=== PATIENT | female | born 1945 | race Caucasian/White ===

== ENCOUNTER 2016-09-08 03:12 | Inpatient (IN) | payer MEDICARE, MEDICAID ==
[~2016-09-08] VITALS: Ht 172.7 cm; Wt 75.5 kg
[~2016-09-08 03:12] MED LIST: AMLO10TA2 PO; AMLO10TA4 PO; AMLO5TAB4 PO; AMOX1TAB64 PO; ASPI-621 PO; BACL-19 PO; CALC400T5 PO; CARV25TA12 PO; CLON1TAB23 PO; DOCU-30 PO; DULO30CA2 PO; ENOX40SY4 SQ; EZET10TA3 PO; FOLI-17 PO; GABA300C10 PO; HYDR-3138 PO; HYDR-3342; IBUP800T PO; IPRA4AER INH; LEVO500T33 PO; LEVO50TA5 PO; LISI-420 PO; LORA0.5T PO; MAGN400T26 PO; METO25TA35 PO; MIRT30TA3 PO; MULT-6 PO; ONDA4TAB7 PO; OXYB10TA PO; OXYC15TA PO; OXYC1TAB8 PO; PANT40TA3 PO; POLY17PO5 PO; QUIN40TA PO; THIA100T10 PO; TRAZ300T6 PO; Trazadone
[2016-09-08] MEDS ORDERED: ALBUTEROL/IPRATROPIUM 2.5MG/0.5MG, 3 ML ONE ×2 (03:17→04:44)
[2016-09-08] MEDS ORDERED: methylPREDNISolone SOD SUCC 125 MG/2 ML IVP ONE (03:30)
[2016-09-08] MEDS ORDERED: ALBUTEROL SULFATE 2.5 MG/3 ML NPPB ONE (03:30)
[2016-09-08] MEDS ORDERED: SODIUM CHLORIDE 0.9% 1,000ML IVBOLUS ONE (03:30)
[2016-09-08] MEDS ORDERED: AMLO10TA2 PO (03:40)
[2016-09-08] MEDS ORDERED: methylPREDNISolone SOD SUCC 125 MG/2 ML ONE (03:53)
[2016-09-08] MEDS ORDERED: AZITHROMYCIN 500 MG in SODIUM CHLORIDE 0.9% 250 ML IV ONE (04:00)
[2016-09-08] MEDS ORDERED: ACETAMINOPHEN 325 MG TABLET PO ONE (04:00)
[2016-09-08] MEDS ORDERED: CEFTRIAXONE PMX 1GM/50ML 50 ML IVPB ONE (04:00)
[2016-09-08] MEDS ORDERED: ACETAMINOPHEN 325 MG TABLET ONE (04:02)
[2016-09-08] MEDS ORDERED: CEFTRIAXONE PMX 1GM/50ML 50 ML ONE (04:02)
[2016-09-08 04:22] LABS: BLOOD UREA NITROGEN 15 mg/dL (7-18)
[2016-09-08 04:29] LABS: IS PT STATUS REG ER OR PRE ER? YES
[2016-09-08] MEDS ORDERED: IBUPROFEN 200 MG TABLET PO PRN (05:00)
[2016-09-08] MEDS ORDERED: ACETAMINOPHEN 325 MG TABLET PO PRN (05:00)
[2016-09-08] MEDS ORDERED: MORPHINE SULFATE 4 MG/ML, 1ML IVPush PRN (05:00)
[2016-09-08] MEDS ORDERED: GUAIFENESIN/DM 200-20MG, 10ML UDC PO PRN (05:00)
[2016-09-08] MEDS ORDERED: FUROSEMIDE 40 MG/4 ML IV ONE (05:00)
[2016-09-08] MEDS ORDERED: DOCUSATE 100 MG CAPSULE PO PRN (05:00)
[2016-09-08] MEDS ORDERED: POLYETHYLENE GLYCOL 17 GM PACKET PO PRN (05:00)
[2016-09-08] MEDS ORDERED: ONDANSETRON 2MG/ML, 2ML IVPush PRN ×2 (05:00)
[2016-09-08] MEDS ORDERED: BISACODYL 10 MG SUPP PR PRN (05:00)
[2016-09-08 05:22] VITALS: BP 132/75
[2016-09-08] MEDS ORDERED: ALBUTEROL/IPRATROPIUM 2.5MG/0.5MG, 3 ML NPPB PRN (05:30)
[2016-09-08] MEDS: OXYcodone IR 5MG TABLET PO SCH ×4 (06:00→21:14)
[2016-09-08] MEDS: NICOTINE 21 MG/24 HR PATCH.TD24 TD SCH (06:04)
[2016-09-08] MEDS: ENOXAPARIN 40 MG/0.4 ML SQ SCH (06:04)
[2016-09-08 07:24] VITALS: BP 126/81
[2016-09-08] MEDS: POTASSIUM CHLORIDE 20 MEQ TAB.ER.PRT PO SCH (08:00)
[2016-09-08] MEDS ORDERED: FUROSEMIDE 40 MG/4 ML IV SCH (09:00)
[2016-09-08] MEDS: SODIUM CHLORIDE FLUSH 3ML SYRINGE IVF SCH ×2 (09:00→21:15)
[2016-09-08] MEDS ORDERED: OXYBUTYNIN CHLORIDE 5 MG TABLET PO SCH (09:00)
[2016-09-08] MEDS: methylPREDNISolone SOD SUCC 125 MG/2 ML IVPush SCH ×3 (09:43→22:24)
[2016-09-08] MEDS: GABAPENTIN 300 MG CAPSULE PO SCH ×3 (09:51→21:14)
[2016-09-08] MEDS: AMLODIPINE 5 MG TABLET PO SCH (09:51)
[2016-09-08] MEDS: DULOXETINE 30 MG CAPSULE.DR PO SCH (09:51)
[2016-09-08] MEDS: LEVOTHYROXINE 50 MCG TABLET PO SCH (09:51)
[2016-09-08 13:05] VITALS: BP 135/85
[2016-09-08] MEDS: FLUTICASONE/VILANTEROL 200-25MCG/INH INH SCH (14:33)
[2016-09-08 15:53] LABS: IS PT STATUS REG ER OR PRE ER? NO
[2016-09-08] MEDS: CEFTRIAXONE PMX 1GM/50ML 50 ML IV SCH (16:17)
[2016-09-08 18:45] VITALS: BP 122/70
[2016-09-08] MEDS: ALBUTEROL/IPRATROPIUM 2.5MG/0.5MG, 3 ML NPPB SCH (21:30)
[2016-09-09 00:45] VITALS: BP 126/77
[2016-09-09] MEDS: OXYcodone IR 5MG TABLET PO PRN ×4 (03:20→20:29)
[2016-09-09] MEDS: CEFTRIAXONE PMX 1GM/50ML 50 ML IV SCH ×2 (04:27→16:01)
[2016-09-09] MEDS: methylPREDNISolone SOD SUCC 125 MG/2 ML IVPush SCH ×4 (04:28→22:13)
[2016-09-09] MEDS: NICOTINE 21 MG/24 HR PATCH.TD24 TD SCH (05:28)
[2016-09-09] MEDS: ENOXAPARIN 40 MG/0.4 ML SQ SCH (05:28)
[2016-09-09] MEDS: AZITHROMYCIN 500 MG in SODIUM CHLORIDE 0.9% 250 ML IV SCH (05:28)
[2016-09-09] MEDS: ALBUTEROL/IPRATROPIUM 2.5MG/0.5MG, 3 ML NPPB SCH ×4 (07:10→19:30)
[2016-09-09] MEDS: DULOXETINE 30 MG CAPSULE.DR PO SCH (08:42)
[2016-09-09] MEDS: GABAPENTIN 300 MG CAPSULE PO SCH ×3 (08:42→20:29)
[2016-09-09] MEDS: LEVOTHYROXINE 50 MCG TABLET PO SCH (08:42)
[2016-09-09] MEDS: OXYBUTYNIN CHLORIDE 5 MG TABLET PO SCH ×3 (08:42→20:33)
[2016-09-09] MEDS: AMLODIPINE 5 MG TABLET PO SCH (08:42)
[2016-09-09] MEDS: POTASSIUM CHLORIDE 20 MEQ TAB.ER.PRT PO SCH (08:43)
[2016-09-09] MEDS: SODIUM CHLORIDE FLUSH 3ML SYRINGE IVF SCH ×2 (08:43→20:33)
[2016-09-09] MEDS: FLUTICASONE/VILANTEROL 200-25MCG/INH INH SCH (08:43)
[2016-09-09] MEDS: FUROSEMIDE 40 MG/4 ML IV SCH (08:43)
[2016-09-09 13:31] VITALS: BP 125/74
[2016-09-09 20:00] VITALS: BP 129/71
[2016-09-09] MEDS: LORazepam 0.5MG TABLET PO PRN (20:30)
[2016-09-10 02:31] VITALS: BP 132/84
[2016-09-10] MEDS: OXYcodone IR 5MG TABLET PO PRN ×5 (04:35→23:31)
[2016-09-10] MEDS: CEFTRIAXONE PMX 1GM/50ML 50 ML IV SCH ×2 (04:35→16:42)
[2016-09-10] MEDS: methylPREDNISolone SOD SUCC 125 MG/2 ML IVPush SCH ×4 (04:42→22:35)
[2016-09-10] MEDS: ENOXAPARIN 40 MG/0.4 ML SQ SCH (04:43)
[2016-09-10] MEDS: NICOTINE 21 MG/24 HR PATCH.TD24 TD SCH (04:43)
[2016-09-10] MEDS: AZITHROMYCIN 500 MG in SODIUM CHLORIDE 0.9% 250 ML IV SCH (05:22)
[2016-09-10] MEDS: ALBUTEROL/IPRATROPIUM 2.5MG/0.5MG, 3 ML NPPB SCH ×4 (07:00→20:02)
[2016-09-10 08:00] VITALS: BP 142/84
[2016-09-10] MEDS: OXYBUTYNIN CHLORIDE 5 MG TABLET PO SCH ×3 (08:14→21:41)
[2016-09-10] MEDS: AMLODIPINE 5 MG TABLET PO SCH (08:14)
[2016-09-10] MEDS: LEVOTHYROXINE 50 MCG TABLET PO SCH (08:14)
[2016-09-10] MEDS: POTASSIUM CHLORIDE 20 MEQ TAB.ER.PRT PO SCH (08:14)
[2016-09-10] MEDS: GABAPENTIN 300 MG CAPSULE PO SCH ×3 (08:14→21:41)
[2016-09-10] MEDS: FLUTICASONE/VILANTEROL 200-25MCG/INH INH SCH (08:14)
[2016-09-10] MEDS: FUROSEMIDE 40 MG/4 ML IV SCH (08:15)
[2016-09-10] MEDS: DULOXETINE 30 MG CAPSULE.DR PO SCH (08:15)
[2016-09-10] MEDS: SODIUM CHLORIDE FLUSH 3ML SYRINGE IVF SCH ×2 (08:16→21:41)
[2016-09-10 15:52] VITALS: BP 131/73
[2016-09-10 18:26] VITALS: BP 124/73
[2016-09-10] MEDS: LORazepam 0.5MG TABLET PO PRN (21:41)
[2016-09-11 02:00] VITALS: BP 155/88
[2016-09-11] MEDS: CEFTRIAXONE PMX 1GM/50ML 50 ML IV SCH (04:21)
[2016-09-11] MEDS: methylPREDNISolone SOD SUCC 125 MG/2 ML IVPush SCH ×2 (04:21→08:45)
[2016-09-11] MEDS: AZITHROMYCIN 500 MG in SODIUM CHLORIDE 0.9% 250 ML IV SCH (05:11)
[2016-09-11] MEDS: ENOXAPARIN 40 MG/0.4 ML SQ SCH (05:11)
[2016-09-11] MEDS: NICOTINE 21 MG/24 HR PATCH.TD24 TD SCH (05:11)
[2016-09-11 05:38] LABS: BLOOD UREA NITROGEN 29 mg/dL (7-18)
[2016-09-11] MEDS: ALBUTEROL/IPRATROPIUM 2.5MG/0.5MG, 3 ML NPPB SCH (06:57)
[2016-09-11 08:38] VITALS: BP 172/74
[2016-09-11] MEDS: OXYBUTYNIN CHLORIDE 5 MG TABLET PO SCH (08:45)
[2016-09-11] MEDS: OXYcodone IR 5MG TABLET PO PRN ×2 (08:45→13:06)
[2016-09-11] MEDS: GABAPENTIN 300 MG CAPSULE PO SCH (08:45)
[2016-09-11] MEDS: LEVOTHYROXINE 50 MCG TABLET PO SCH (08:45)
[2016-09-11] MEDS: FLUTICASONE/VILANTEROL 200-25MCG/INH INH SCH (08:45)
[2016-09-11] MEDS: AMLODIPINE 5 MG TABLET PO SCH (08:45)
[2016-09-11] MEDS: POTASSIUM CHLORIDE 20 MEQ TAB.ER.PRT PO SCH (08:46)
[2016-09-11] MEDS: SODIUM CHLORIDE FLUSH 3ML SYRINGE IVF SCH (08:46)
[2016-09-11] MEDS: FUROSEMIDE 40 MG/4 ML IV SCH (08:46)
[2016-09-11] MEDS: DULOXETINE 30 MG CAPSULE.DR PO SCH (08:46)
[2016-09-11] MEDS ORDERED: methylPREDNISolone SOD SUCC 125 MG/2 ML IVPush SCH (11:00)
[2016-09-11] MEDS ORDERED: LOSARTAN 25MG TABLET PO SCH (12:30)
[2016-09-11] MEDS ORDERED: AMLODIPINE 5 MG TABLET PO SCH (12:30)
[2016-09-11] MEDS ORDERED: AMLO5TAB2 PO (12:34)
[2016-09-11] MEDS ORDERED: FURO-93 PO (12:34)
[2016-09-11] MEDS ORDERED: AZIT500T77 PO (12:34)
[2016-09-11] MEDS ORDERED: IBUP200T5 PO (12:34)
[2016-09-11] MEDS ORDERED: POTA20TA14 PO (12:34)
[2016-09-11] MEDS ORDERED: FLUT1BLS INH (12:34)
[2016-09-11] MEDS ORDERED: PRED5TAB PO (12:34)
[2016-09-11] MEDS ORDERED: CEFD300C37 PO (12:34)
[2016-09-11] MEDS ORDERED: IPRA3AMP NPPB (12:34)
[2016-09-11] MEDS ORDERED: LOSA25TA2 PO (12:38)
[2016-09-11 13:04] VITALS: BP 161/75
== END 2016-09-11 15:35 | disposition home or self-care (01) | DRG 871 ==
LOC: ED 03:38 → EDIP 04:33 → SUATTDRO 04:41 → 4WST 05:11 → DCLOUNGE 09-11 15:25
DX: A41.9 Sepsis, unspecified organism (principal); J15.9 Unspecified bacterial pneumonia; J96.21 Acute and chronic respiratory failure with hypoxia; I50.33 Acute on chronic diastolic (congestive) heart failure; J44.1 Chronic obstructive pulmonary disease with (acute) exacerbation; E44.1 Mild protein-calorie malnutrition; E87.1 Hypo-osmolality and hyponatremia; J44.0 Chronic obstructive pulmonary disease with (acute) lower respiratory infection; J98.11 Atelectasis; E03.9 Hypothyroidism, unspecified; F17.210 Nicotine dependence, cigarettes, uncomplicated; F25.9 Schizoaffective disorder, unspecified; G89.29 Other chronic pain; I11.0 Hypertensive heart disease with heart failure; K70.9 Alcoholic liver disease, unspecified; N32.81 Overactive bladder; Z79.891 Long term (current) use of opiate analgesic; Z86.73 Personal history of transient ischemic attack (TIA), and cerebral infarction without residual deficits; Z99.81 Dependence on supplemental oxygen
CPT/HCPCS: 36415; 36600; 71010; 80048; 82040; 82800; 83605; 83735; 83880; 84145; 84484; 85025; 87040; 93005; 93306; 94640; 96374; J0456; J0696; J1650; J1940; J7620; J2930; J7030; J7050

== ENCOUNTER 2017-12-15 17:05 | Inpatient (IN) | payer MEDICARE, MEDICAID ==
[~2017-12-15] VITALS: Ht 165.1 cm; Wt 70.8 kg
[~2017-12-15 17:05] MED LIST changes: +AMLO5TAB2 PO; +AZIT500T5 PO; +CEFD300C37 PO; +DICL25TA PO; +DOCU-131 PO; +DOCU-180 PO; -DOCU-30 PO; +EZET10TA18 PO; -EZET10TA3 PO; +FLUT1BLS INH; +FURO-93 PO; +GUAI100L36 PO; -HYDR-3138 PO; +HYDR-3237 PO; +IBUP-1223 PO; +IBUP-1484 PO; +IBUP-1623 PO; -IBUP800T PO; +IPRA3AMP30 NPPB; -LEVO500T33 PO; +LEVO500T47 PO; +LOSA25TA2 PO; +METR500T PO; +MIRA25TA PO; +NICO-487 TD; +OMEP-110 PO; +ONDA4TAB12 PO; +OXYC-302 PO; +POTA20TA14 PO; +PRED5TAB PO
[2017-12-15] MEDS ORDERED: SODIUM CHLORIDE FLUSH 10ML SYR IVF ONE (17:30)
[2017-12-15 17:43] LABS: BASOPHILS # (AUTO) 0.05 x10^3/uL (0-0.1); BASOPHILS % (AUTO) 1 % (0-1); EOSINOPHILS # (AUTO) 0.13 x10^3/uL (0-0.4); EOSINOPHILS % (AUTO) 2 % (1-7); LYMPHOCYTES # (AUTO) 1.43 x10^3/uL (1-3.4); LYMPHOCYTES % (AUTO) 24 % (22-44); MD NO; MEAN CORPUSCULAR HEMOGLOBIN 31.8 pg (27.0-34.8); MEAN CORPUSCULAR HGB CONC 34.1 g/dL (32.4-35.8); MEAN CORPUSCULAR VOLUME 93.2 fL (80-100); MEAN PLATELET VOLUME 9.4 fL (7.4-10.4); MONOCYTES % (AUTO) 5 % (2-9); NEUTROPHILS # (AUTO) 4.13 x10^3/uL (1.8-6.8); NEUTROPHILS % (AUTO) 68 % (42-75); PLATELET COUNT 230 x10^3/uL (130-400); RED BLOOD COUNT 4.81 x10^6/uL (3.82-5.3); RED CELL DISTRIBUTION WIDTH 12.8 % (9.6-15.2)
[2017-12-15 17:49] LABS: ALANINE AMINOTRANSFERASE 18 U/L (12-78); ALBUMIN 3.6 g/dL (3.4-5.0); ANION GAP 2 mmol/L (5-15); CALCIUM 8.7 mg/dL (8.5-10.1); CHLORIDE 110 mmol/L (98-107); CREATININE 0.72 mg/dL (0.55-1.02)
[2017-12-15 17:51] LABS: ALKALINE PHOSPHATASE 111 U/L (45-117); BILIRUBIN,TOTAL 0.6 mg/dL (0.2-1.0); TOTAL PROTEIN 7.4 g/dL (6.4-8.2)
[2017-12-15] MEDS ORDERED: ASPIRIN 325 MG TABLET EC PO ONE (18:30)
[2017-12-15] MEDS ORDERED: ASPIRIN 325 MG TABLET EC ONE (18:44)
[2017-12-15] MEDS ORDERED: ACETAMINOPHEN 325 MG TABLET PO PRN (20:00)
[2017-12-15] MEDS ORDERED: LORazepam 0.5MG TABLET PO SCH (20:00)
[2017-12-15] MEDS ORDERED: DOCUSATE 100 MG CAPSULE PO PRN (20:30)
[2017-12-15 20:37] VITALS: BP 130/79
[2017-12-15] MEDS: ATORVASTATIN 40 MG TABLET PO SCH (22:54)
[2017-12-15] MEDS: GABAPENTIN 300 MG CAPSULE PO SCH (22:54)
[2017-12-15] MEDS: SODIUM CHLORIDE 0.9% 1,000 ML IV SCH (22:54)
[2017-12-15] MEDS: ONDANSETRON 4 MG TABLET PO SCH (22:54)
[2017-12-15] MEDS: OMEPRAZOLE 20 MG CAPSULE.DR PO SCH (22:54)
[2017-12-16] MEDS ORDERED: OMNIPAQUE 350 MG/ML, 100ML BOTTLE ONE (01:23)
[2017-12-16 04:00] VITALS: BP 124/76
[2017-12-16] MEDS: ONDANSETRON 4 MG TABLET PO SCH ×4 (06:17→21:14)
[2017-12-16 06:27] LABS: CHOL/HDL RATIO 4.2; LDL/HDL RATIO 2.8 (0.5-3.0)
[2017-12-16 06:59] VITALS: BP 151/86
[2017-12-16] MEDS: AMLODIPINE 5 MG TABLET PO SCH (08:04)
[2017-12-16] MEDS: LEVOTHYROXINE 50 MCG TABLET PO SCH (08:04)
[2017-12-16] MEDS: OMEPRAZOLE 20 MG CAPSULE.DR PO SCH ×2 (08:04→16:16)
[2017-12-16] MEDS: CALCIUM CARBONATE 500 MG TAB.CHEW PO SCH (08:04)
[2017-12-16] MEDS: GABAPENTIN 300 MG CAPSULE PO SCH ×3 (08:05→21:14)
[2017-12-16] MEDS: DULOXETINE 30 MG CAPSULE.DR PO SCH (08:05)
[2017-12-16] MEDS: ASPIRIN 81 MG TABLET CHEW PO/NG SCH (08:05)
[2017-12-16] MEDS: LOSARTAN 25MG TABLET PO SCH (08:05)
[2017-12-16] MEDS: Mirabegron** (Myrbetriq**) 25 MG) HOMEMEDPO SCH (09:00)
[2017-12-16] MEDS ORDERED: GADOBUTROL 7.5 MMOL/7.5 ML PFS ONE (11:13)
[2017-12-16] MEDS: FLUTICASONE/VILANTEROL 200-25MCG/INH INH SCH (12:18)
[2017-12-16] MEDS: SODIUM CHLORIDE 0.9% 1,000 ML IV SCH ×2 (12:19→16:21)
[2017-12-16 15:46] VITALS: BP 142/84
[2017-12-16 19:14] VITALS: BP 135/79
[2017-12-16] MEDS: ATORVASTATIN 40 MG TABLET PO SCH (21:14)
[2017-12-17] MEDS: SODIUM CHLORIDE 0.9% 1,000 ML IV SCH ×2 (02:22→12:17)
[2017-12-17 03:27] VITALS: BP 131/76
[2017-12-17] MEDS: ONDANSETRON 4 MG TABLET PO SCH ×4 (05:56→21:04)
[2017-12-17 07:19] VITALS: BP 167/80
[2017-12-17] MEDS: FLUTICASONE/VILANTEROL 200-25MCG/INH INH SCH (08:59)
[2017-12-17] MEDS: CALCIUM CARBONATE 500 MG TAB.CHEW PO SCH (09:00)
[2017-12-17] MEDS: LOSARTAN 25MG TABLET PO SCH (09:00)
[2017-12-17] MEDS: LEVOTHYROXINE 50 MCG TABLET PO SCH (09:00)
[2017-12-17] MEDS: AMLODIPINE 5 MG TABLET PO SCH (09:00)
[2017-12-17] MEDS: DULOXETINE 30 MG CAPSULE.DR PO SCH (09:01)
[2017-12-17] MEDS: OMEPRAZOLE 20 MG CAPSULE.DR PO SCH ×2 (09:01→16:33)
[2017-12-17] MEDS: ASPIRIN 81 MG TABLET CHEW PO/NG SCH (09:01)
[2017-12-17] MEDS: GABAPENTIN 300 MG CAPSULE PO SCH ×3 (09:01→21:04)
[2017-12-17] MEDS: Mirabegron** (Myrbetriq**) 25 MG) HOMEMEDPO SCH (09:02)
[2017-12-17 09:11] VITALS: BP 130/79
[2017-12-17 11:00] LABS: MICROSCOPIC INDICATED
[2017-12-17 11:01] LABS: CULTURE INDICATED? YES
[2017-12-17 11:14] LABS: AMPHETAMINE SCREEN, URINE Negative (Negative); BARBITURATE SCREEN, URINE Negative (Negative); BENZODIAZEPINE SCREEN, URINE Negative (Negative); CANNABINOID SCREEN, URINE Positive (Negative); COCAINE SCREEN, URINE Negative (Negative); METHADONE SCREEN, URINE Negative (Negative); OPIATE SCREEN, URINE Negative (Negative)
[2017-12-17 13:37] VITALS: BP 108/72
[2017-12-17] MEDS ORDERED: CEFTRIAXONE PMX 1GM/50ML 50 ML IV SCH (16:30)
[2017-12-17 16:35] VITALS: BP 110/70
[2017-12-17] MEDS: CEFTRIAXONE 1,000 MG in SODIUM CHLORIDE 0.9% 50 ML IV SCH (17:45)
[2017-12-17 19:24] VITALS: BP 130/79
[2017-12-17] MEDS: ATORVASTATIN 40 MG TABLET PO SCH (21:04)
[2017-12-18] MEDS: SODIUM CHLORIDE 0.9% 1,000 ML IV SCH (01:05)
[2017-12-18 01:28] VITALS: BP 148/72
[2017-12-18] MEDS: ONDANSETRON 4 MG TABLET PO SCH ×4 (06:29→21:35)
[2017-12-18 07:15] VITALS: BP 148/81
[2017-12-18] MEDS: Mirabegron** (Myrbetriq**) 25 MG) HOMEMEDPO SCH (09:00)
[2017-12-18] MEDS: CALCIUM CARBONATE 500 MG TAB.CHEW PO SCH (09:00)
[2017-12-18] MEDS: DULOXETINE 30 MG CAPSULE.DR PO SCH (09:49)
[2017-12-18] MEDS: FLUCONAZOLE 200 MG TABLET PO SCH (09:50)
[2017-12-18] MEDS: OMEPRAZOLE 20 MG CAPSULE.DR PO SCH ×2 (09:51→17:08)
[2017-12-18] MEDS: LEVOTHYROXINE 50 MCG TABLET PO SCH (09:51)
[2017-12-18] MEDS: LOSARTAN 50MG TABLET PO SCH (09:52)
[2017-12-18] MEDS: AMLODIPINE 5 MG TABLET PO SCH (09:52)
[2017-12-18] MEDS: GABAPENTIN 300 MG CAPSULE PO SCH ×3 (09:53→21:35)
[2017-12-18] MEDS: ASPIRIN 81 MG TABLET CHEW PO/NG SCH (09:54)
[2017-12-18] MEDS: FLUTICASONE/VILANTEROL 200-25MCG/INH INH SCH (09:54)
[2017-12-18 12:46] VITALS: BP 102/66
[2017-12-18] MEDS: CEFTRIAXONE 1,000 MG in SODIUM CHLORIDE 0.9% 50 ML IV SCH (17:08)
[2017-12-18 19:52] VITALS: BP 140/87
[2017-12-18] MEDS: ATORVASTATIN 40 MG TABLET PO SCH (21:35)
[2017-12-19 02:21] VITALS: BP 152/72
[2017-12-19] MEDS: ONDANSETRON 4 MG TABLET PO SCH ×3 (04:51→11:00)
[2017-12-19 07:34] VITALS: BP 151/79
[2017-12-19] MEDS: Mirabegron** (Myrbetriq**) 25 MG) HOMEMEDPO SCH (09:00)
[2017-12-19] MEDS: CALCIUM CARBONATE 500 MG TAB.CHEW PO SCH (09:00)
[2017-12-19] MEDS: ASPIRIN 81 MG TABLET CHEW PO/NG SCH (09:49)
[2017-12-19] MEDS: FLUCONAZOLE 200 MG TABLET PO SCH (09:50)
[2017-12-19] MEDS: AMLODIPINE 5 MG TABLET PO SCH (09:50)
[2017-12-19] MEDS: LOSARTAN 50MG TABLET PO SCH (09:50)
[2017-12-19] MEDS: LEVOTHYROXINE 50 MCG TABLET PO SCH (09:50)
[2017-12-19] MEDS: OMEPRAZOLE 20 MG CAPSULE.DR PO SCH (09:50)
[2017-12-19] MEDS: GABAPENTIN 300 MG CAPSULE PO SCH (09:51)
[2017-12-19] MEDS: DULOXETINE 30 MG CAPSULE.DR PO SCH (09:51)
[2017-12-19] MEDS: FLUTICASONE/VILANTEROL 200-25MCG/INH INH SCH (09:52)
[2017-12-19] MEDS ORDERED: SULFAMETH./TRIMETHOPRIM DS 800MG/160MG TABLET PO SCH (11:00)
[2017-12-19] MEDS ORDERED: FLUC200T PO (11:01)
[2017-12-19] MEDS ORDERED: ATOR40TA78 PO (11:01)
[2017-12-19] MEDS ORDERED: ASPI-515 PO/NG (11:01)
[2017-12-19] MEDS ORDERED: NITR100C57 PO (11:15)
[2017-12-19] MEDS ORDERED: LOSA50TA2 PO (11:17)
[2017-12-19] MEDS ORDERED: PNEUMOCOCCAL 23 VACCINE IM-VACC ONE (15:00)
== END 2017-12-19 14:52 | DRG 65 ==
LOC: ED 18:33 → EDIP 18:36 → 4WST 19:47
PROVIDERS: ADMIT Hospitalist; ATTEND Family Medicine
PROC: 0T9B70Z Drainage of Bladder with Drainage Device, Via Natural or Artificial Opening (ICD-10-PCS; principal; 2017-12-17)
DX: I63.9 Cerebral infarction, unspecified (principal); N39.0 Urinary tract infection, site not specified; G81.94 Hemiplegia, unspecified affecting left nondominant side; I67.1 Cerebral aneurysm, nonruptured; I71.2 Thoracic aortic aneurysm, without rupture; R47.1 Dysarthria and anarthria; B96.20 Unspecified Escherichia coli [E. coli] as the cause of diseases classified elsewhere; F17.200 Nicotine dependence, unspecified, uncomplicated; F32.9 Major depressive disorder, single episode, unspecified; F41.9 Anxiety disorder, unspecified; B37.3 Candidiasis of vulva and vagina; E03.9 Hypothyroidism, unspecified; F25.9 Schizoaffective disorder, unspecified; R47.81 Slurred speech; I11.0 Hypertensive heart disease with heart failure; I50.9 Heart failure, unspecified; J44.9 Chronic obstructive pulmonary disease, unspecified; Z79.82 Long term (current) use of aspirin; Z80.9 Family history of malignant neoplasm, unspecified
CPT/HCPCS: 36415; 70450; 70496; 70498; 70553; 71045; 80053; 80061; 80307; 81001; 85025; 87077; 87086; 87186; 93005; 93308; 99285; A9585; Q0162; Q9967; 92523-GN; J7030

== ENCOUNTER 2017-12-24 10:51 | Emergency (ER) | payer MEDICARE, MEDICAID ==
[~2017-12-24] VITALS: Ht 172.7 cm; Wt 68.5 kg
[~2017-12-24 10:51] MED LIST changes: +ASPI-515 PO/NG; +ATOR40TA78 PO; +FLUC200T PO; +LOSA50TA2 PO; +NITR100C57 PO
[2017-12-24 10:53] VITALS: BP 161/79
[2017-12-24] MEDS ORDERED: ASPI-496 PO (11:47)
[2017-12-24 11:52] LABS: BASOPHILS # (AUTO) 0.08 x10^3/uL (0-0.1); BASOPHILS % (AUTO) 1 % (0-1); EOSINOPHILS # (AUTO) 0.15 x10^3/uL (0-0.4); EOSINOPHILS % (AUTO) 3 % (1-7); LYMPHOCYTES # (AUTO) 1.58 x10^3/uL (1-3.4); LYMPHOCYTES % (AUTO) 27 % (22-44); MD NO; MEAN CORPUSCULAR HEMOGLOBIN 31.1 pg (27.0-34.8); MEAN CORPUSCULAR HGB CONC 33.5 g/dL (32.4-35.8); MEAN CORPUSCULAR VOLUME 92.9 fL (80-100); MEAN PLATELET VOLUME 9.2 fL (7.4-10.4); MONOCYTES # (AUTO) 0.35 x10^3/uL (0.2-0.8); MONOCYTES % (AUTO) 6 % (2-9); NEUTROPHILS % (AUTO) 63 % (42-75); PLATELET COUNT 259 x10^3/uL (130-400); RED BLOOD COUNT 4.72 x10^6/uL (3.82-5.3); RED CELL DISTRIBUTION WIDTH 12.7 % (9.6-15.2)
[2017-12-24 12:01] LABS: ALANINE AMINOTRANSFERASE 19 U/L (12-78); ALBUMIN 3.5 g/dL (3.4-5.0); ANION GAP 7 mmol/L (5-15); CALCIUM 8.9 mg/dL (8.5-10.1); CHLORIDE 105 mmol/L (98-107)
[2017-12-24 12:06] LABS: ALKALINE PHOSPHATASE 115 U/L (45-117); BILIRUBIN,TOTAL 0.7 mg/dL (0.2-1.0); CREATININE 0.74 mg/dL (0.55-1.02); TOTAL PROTEIN 7.7 g/dL (6.4-8.2); TROPONIN I < 0.015 ng/mL (0.000-0.045)
[2017-12-24 12:14] LABS: MICROSCOPIC NOT IND
[2017-12-24 12:29] LABS: CULTURE INDICATED? NO
== END 2017-12-24 13:17 | disposition home or self-care (01) ==
LOC: ED 13:10
DX: I63.9 Cerebral infarction, unspecified (principal); R47.81 Slurred speech; J43.9 Emphysema, unspecified; I11.0 Hypertensive heart disease with heart failure; I50.9 Heart failure, unspecified; E03.9 Hypothyroidism, unspecified; F10.20 Alcohol dependence, uncomplicated; F25.9 Schizoaffective disorder, unspecified; Z86.73 Personal history of transient ischemic attack (TIA), and cerebral infarction without residual deficits; W18.39XA Other fall on same level, initial encounter; Y93.89 Activity, other specified; Y92.89 Other specified places as the place of occurrence of the external cause; Y99.8 Other external cause status
CPT/HCPCS: 36415; 70450; 80053; 81003; 84484; 85025; 99285

== ENCOUNTER 2018-03-06 07:54 | Inpatient (IN) | payer MEDICARE, MEDICAID ==
[~2018-03-06] VITALS: Ht 170.2 cm; Wt 71.1 kg
[~2018-03-06 07:54] MED LIST changes: -AMLO10TA2 PO; +AMLO10TA6 PO; -AMLO5TAB2 PO; +AMLO5TAB7 PO; +ASPI-496 PO; +DICL100G19 TP; +LOPE2CAP3 PO; +MULT1TAB60 PO; +TIOT18CA INH
[2018-03-06 08:44] LABS: BASOPHILS # (AUTO) 0.03 x10^3/uL (0-0.1); BASOPHILS % (AUTO) 0 % (0-1); EOSINOPHILS # (AUTO) 0.01 x10^3/uL (0-0.4); EOSINOPHILS % (AUTO) 0 % (1-7); LYMPHOCYTES % (AUTO) 10 % (22-44); MD NO; MEAN CORPUSCULAR HEMOGLOBIN 31.5 pg (27.0-34.8); MEAN CORPUSCULAR HGB CONC 33.3 g/dL (32.4-35.8); MEAN CORPUSCULAR VOLUME 94.6 fL (80-100); MEAN PLATELET VOLUME 8.7 fL (7.4-10.4); MONOCYTES % (AUTO) 5 % (2-9); NEUTROPHILS # (AUTO) 12.53 x10^3/uL (1.8-6.8); NEUTROPHILS % (AUTO) 85 % (42-75); PLATELET COUNT 237 x10^3/uL (130-400); RED BLOOD COUNT 3.99 x10^6/uL (3.82-5.3); RED CELL DISTRIBUTION WIDTH 14.6 % (9.6-15.2)
[2018-03-06 08:54] LABS: INTERNATIONAL NORMALIZED RATIO 1.02 (0.93-1.1); PROTHROMBIN TIME 10.6 Seconds (9.6-11.5)
[2018-03-06 08:55] LABS: ALBUMIN 2.7 g/dL (3.4-5.0); ANION GAP 6 mmol/L (5-15); CALCIUM 8.6 mg/dL (8.5-10.1); CHLORIDE 105 mmol/L (98-107); CREATININE 0.89 mg/dL (0.55-1.02)
[2018-03-06] MEDS ORDERED: L.E.T SOLUTION TP ONE ×2 (09:34→10:00)
[2018-03-06 11:18] LABS: MICROSCOPIC AUTO
[2018-03-06 11:19] LABS: CULTURE INDICATED? YES
[2018-03-06] MEDS ORDERED: LIDOCAINE-MPF 1%, 2ML ONE (11:33)
[2018-03-06] MEDS ORDERED: LIDOCAINE-MPF 1%, 5ML ONE (11:33)
[2018-03-06] MEDS ORDERED: LIDOCAINE 1%, 10ML INFIL ONE (12:00)
[2018-03-06] MEDS ORDERED: CEFTRIAXONE PMX 1GM/50ML 50 ML IV ONE (12:00)
[2018-03-06] MEDS ORDERED: ONDANSETRON 2MG/ML, 2ML IVPush PRN (13:30)
[2018-03-06] MEDS ORDERED: ONDANSETRON ODT 4 MG PO PRN (13:30)
[2018-03-06] MEDS ORDERED: POLYETHYLENE GLYCOL 17 GM PACKET PO PRN (13:30)
[2018-03-06] MEDS ORDERED: LABETALOL 5MG/ML, 20ML IVPush PRN (13:30)
[2018-03-06] MEDS: CEFTRIAXONE PMX 1GM/50ML 50 ML IV SCH (14:00)
[2018-03-06] MEDS ORDERED: ONDANSETRON 2MG/ML, 2ML ONE (14:28)
[2018-03-06] MEDS ORDERED: IBUP-1222 PO (14:39)
[2018-03-06 15:04] VITALS: BP 138/79
[2018-03-06 15:50] LABS: LDL/HDL RATIO 1.5 (0.5-3.0)
[2018-03-06 15:56] LABS: HEMOGLOBIN A1C 5.9 % (4.2-6.3)
[2018-03-06] MEDS: GABAPENTIN 300 MG CAPSULE PO SCH ×2 (16:00→21:28)
[2018-03-06 19:47] VITALS: BP 137/82
[2018-03-06] MEDS: IPRATROPIUM 0.5 MG/2.5 ML INHA NPPB SCH (20:58)
[2018-03-06] MEDS: OMEPRAZOLE 20 MG CAPSULE.DR PO SCH (21:20)
[2018-03-06] MEDS: ATORVASTATIN 40 MG TABLET PO SCH (21:28)
[2018-03-06] MEDS: ACETAMINOPHEN 325 MG TABLET PO PRN (21:28)
[2018-03-06] MEDS: FAMOTIDINE 20 MG/2 ML IVPush SCH (21:28)
[2018-03-07] MEDS: IPRATROPIUM 0.5 MG/2.5 ML INHA NPPB SCH ×5 (03:30→20:13)
[2018-03-07] MEDS: LEVOTHYROXINE 50 MCG TABLET PO SCH (05:03)
[2018-03-07 05:12] VITALS: BP 138/76
[2018-03-07 05:19] LABS: BASOPHILS # (AUTO) 0.02 x10^3/uL (0-0.1); BASOPHILS % (AUTO) 0 % (0-1); EOSINOPHILS # (AUTO) 0.04 x10^3/uL (0-0.4); EOSINOPHILS % (AUTO) 0 % (1-7); LYMPHOCYTES # (AUTO) 1.39 x10^3/uL (1-3.4); LYMPHOCYTES % (AUTO) 10 % (22-44); MD NO; MEAN CORPUSCULAR HEMOGLOBIN 31.9 pg (27.0-34.8); MEAN CORPUSCULAR HGB CONC 33.7 g/dL (32.4-35.8); MEAN CORPUSCULAR VOLUME 94.5 fL (80-100); MEAN PLATELET VOLUME 8.7 fL (7.4-10.4); MONOCYTES # (AUTO) 0.98 x10^3/uL (0.2-0.8); MONOCYTES % (AUTO) 7 % (2-9); NEUTROPHILS # (AUTO) 11.44 x10^3/uL (1.8-6.8); NEUTROPHILS % (AUTO) 83 % (42-75); PLATELET COUNT 259 x10^3/uL (130-400); RED BLOOD COUNT 3.93 x10^6/uL (3.82-5.3); RED CELL DISTRIBUTION WIDTH 14.6 % (9.6-15.2)
[2018-03-07 05:28] LABS: ALBUMIN 2.6 g/dL (3.4-5.0); ANION GAP 8 mmol/L (5-15); CALCIUM 9.1 mg/dL (8.5-10.1); CHLORIDE 106 mmol/L (98-107)
[2018-03-07 05:41] LABS: ALANINE AMINOTRANSFERASE 27 U/L (12-78); ALKALINE PHOSPHATASE 128 U/L (45-117); BILIRUBIN,TOTAL 0.6 mg/dL (0.2-1.0); CREATININE 0.65 mg/dL (0.55-1.02); TOTAL PROTEIN 7.1 g/dL (6.4-8.2)
[2018-03-07] MEDS: ACETAMINOPHEN 325 MG TABLET PO PRN ×2 (05:41→08:57)
[2018-03-07 06:50] VITALS: BP 130/65
[2018-03-07] MEDS: OMEPRAZOLE 20 MG CAPSULE.DR PO SCH ×2 (08:56→21:00)
[2018-03-07] MEDS: MULTIVITAMIN 1 TABLET PO SCH (08:56)
[2018-03-07] MEDS: DULOXETINE 30 MG CAPSULE.DR PO SCH (08:57)
[2018-03-07] MEDS: FOLIC ACID 1 MG TABLET PO SCH (08:57)
[2018-03-07] MEDS: GABAPENTIN 300 MG CAPSULE PO SCH ×3 (08:57→21:06)
[2018-03-07] MEDS: FAMOTIDINE 20 MG/2 ML IVPush SCH ×2 (08:57→21:06)
[2018-03-07] MEDS: SENNA/DOCUSATE TABLET PO SCH (08:58)
[2018-03-07] MEDS: FLUTICASONE/VILANTEROL 200-25MCG/INH INH SCH (09:37)
[2018-03-07 12:19] VITALS: BP 123/74
[2018-03-07] MEDS: CEFTRIAXONE PMX 1GM/50ML 50 ML IV SCH (14:36)
[2018-03-07 20:10] VITALS: BP 145/83
[2018-03-07] MEDS: ATORVASTATIN 40 MG TABLET PO SCH (21:06)
[2018-03-08 01:35] VITALS: BP 125/73
[2018-03-08] MEDS: IPRATROPIUM 0.5 MG/2.5 ML INHA NPPB SCH ×4 (03:00→21:00)
[2018-03-08] MEDS: LEVOTHYROXINE 50 MCG TABLET PO SCH (05:07)
[2018-03-08 06:00] LABS: BASOPHILS # (AUTO) 0.07 x10^3/uL (0-0.1); BASOPHILS % (AUTO) 1 % (0-1); EOSINOPHILS # (AUTO) 0.07 x10^3/uL (0-0.4); EOSINOPHILS % (AUTO) 1 % (1-7); LYMPHOCYTES # (AUTO) 1.91 x10^3/uL (1-3.4); LYMPHOCYTES % (AUTO) 17 % (22-44); MD NO; MEAN CORPUSCULAR HEMOGLOBIN 31.9 pg (27.0-34.8); MEAN CORPUSCULAR HGB CONC 33.8 g/dL (32.4-35.8); MEAN CORPUSCULAR VOLUME 94.1 fL (80-100); MONOCYTES # (AUTO) 0.84 x10^3/uL (0.2-0.8); MONOCYTES % (AUTO) 7 % (2-9); NEUTROPHILS # (AUTO) 8.37 x10^3/uL (1.8-6.8); NEUTROPHILS % (AUTO) 74 % (42-75); PLATELET COUNT 290 x10^3/uL (130-400); RED BLOOD COUNT 3.83 x10^6/uL (3.82-5.3); RED CELL DISTRIBUTION WIDTH 14.7 % (9.6-15.2)
[2018-03-08 06:11] LABS: ALBUMIN 2.4 g/dL (3.4-5.0); ANION GAP 9 mmol/L (5-15); CALCIUM 8.9 mg/dL (8.5-10.1); CHLORIDE 108 mmol/L (98-107)
[2018-03-08 06:15] LABS: CREATININE 0.76 mg/dL (0.55-1.02)
[2018-03-08 06:54] VITALS: BP 126/73
[2018-03-08] MEDS: OMEPRAZOLE 20 MG CAPSULE.DR PO SCH (09:00)
[2018-03-08] MEDS: FAMOTIDINE 20 MG/2 ML IVPush SCH ×2 (10:08→21:09)
[2018-03-08] MEDS: FOLIC ACID 1 MG TABLET PO SCH (10:08)
[2018-03-08] MEDS: DULOXETINE 30 MG CAPSULE.DR PO SCH (10:08)
[2018-03-08] MEDS: FLUTICASONE/VILANTEROL 200-25MCG/INH INH SCH (10:08)
[2018-03-08] MEDS: MULTIVITAMIN 1 TABLET PO SCH (10:08)
[2018-03-08] MEDS: GABAPENTIN 300 MG CAPSULE PO SCH ×2 (10:09→16:14)
[2018-03-08] MEDS: SENNA/DOCUSATE TABLET PO SCH (10:09)
[2018-03-08] MEDS: MEROPENEM 1 GM in SODIUM CHLORIDE 0.9% 100 ML IV SCH ×3 (11:34→21:59)
[2018-03-08 12:57] VITALS: BP 155/81
[2018-03-08] MEDS: ASPIRIN 81 MG TABLET CHEW PO SCH (13:32)
[2018-03-08 20:07] VITALS: BP 123/75
[2018-03-08] MEDS: GABAPENTIN 250 MG/5 ML ORAL SOL PO SCH (21:59)
[2018-03-08] MEDS: ATORVASTATIN 40 MG TABLET PO SCH (21:59)
[2018-03-08] MEDS: ACETAMINOPHEN 325 MG TABLET PO PRN (22:43)
[2018-03-09] MEDS: IPRATROPIUM 0.5 MG/2.5 ML INHA NPPB SCH ×4 (03:00→20:27)
[2018-03-09 04:00] VITALS: BP 126/73
[2018-03-09] MEDS: LEVOTHYROXINE 50 MCG TABLET PO SCH (06:26)
[2018-03-09] MEDS: MEROPENEM 1 GM in SODIUM CHLORIDE 0.9% 100 ML IV SCH ×3 (06:26→22:40)
[2018-03-09] MEDS: PANTOPRAZOLE GRAN. PKT 40 MG PO SCH (06:26)
[2018-03-09 07:22] VITALS: BP 111/70
[2018-03-09] MEDS: ASPIRIN 81 MG TABLET CHEW PO SCH (08:05)
[2018-03-09] MEDS: MULTIVITAMIN 1 TABLET PO SCH (08:05)
[2018-03-09] MEDS: GABAPENTIN 250 MG/5 ML ORAL SOL PO SCH ×3 (08:05→22:40)
[2018-03-09] MEDS: DULOXETINE 30 MG CAPSULE.DR PO SCH (08:05)
[2018-03-09] MEDS: FOLIC ACID 1 MG TABLET PO SCH (08:06)
[2018-03-09] MEDS: FAMOTIDINE 20 MG/2 ML IVPush SCH ×2 (08:06→21:00)
[2018-03-09] MEDS: SENNA/DOCUSATE TABLET PO SCH (08:08)
[2018-03-09] MEDS: FLUTICASONE/VILANTEROL 200-25MCG/INH INH SCH (09:30)
[2018-03-09] MEDS: NICOTINE 7 MG/24 HR PATCH.TD24 TD SCH (10:30)
[2018-03-09 13:08] VITALS: BP 128/78
[2018-03-09 22:02] VITALS: BP 123/74
[2018-03-09] MEDS: ATORVASTATIN 40 MG TABLET PO SCH (22:40)
[2018-03-10 02:35] VITALS: BP 126/73
[2018-03-10] MEDS: IPRATROPIUM 0.5 MG/2.5 ML INHA NPPB SCH ×3 (03:00→15:20)
[2018-03-10] MEDS: MEROPENEM 1 GM in SODIUM CHLORIDE 0.9% 100 ML IV SCH ×2 (05:03→13:58)
[2018-03-10] MEDS: LEVOTHYROXINE 50 MCG TABLET PO SCH (05:04)
[2018-03-10] MEDS: PANTOPRAZOLE GRAN. PKT 40 MG PO SCH (05:04)
[2018-03-10 08:06] VITALS: BP 127/77
[2018-03-10] MEDS: FLUTICASONE/VILANTEROL 200-25MCG/INH INH SCH (08:33)
[2018-03-10] MEDS: GABAPENTIN 250 MG/5 ML ORAL SOL PO SCH ×2 (08:33→16:53)
[2018-03-10] MEDS: DULOXETINE 30 MG CAPSULE.DR PO SCH (08:34)
[2018-03-10] MEDS: SENNA/DOCUSATE TABLET PO SCH (08:34)
[2018-03-10] MEDS: FOLIC ACID 1 MG TABLET PO SCH (08:34)
[2018-03-10] MEDS: FAMOTIDINE 20 MG/2 ML IVPush SCH (08:34)
[2018-03-10] MEDS: MULTIVITAMIN 1 TABLET PO SCH (08:34)
[2018-03-10] MEDS: ASPIRIN 81 MG TABLET CHEW PO SCH (08:34)
[2018-03-10] MEDS: NICOTINE 7 MG/24 HR PATCH.TD24 TD SCH (08:34)
[2018-03-10] MEDS ORDERED: MERO1VIA15 IV (10:29)
[2018-03-10] MEDS ORDERED: ASPI-515 PO (10:29)
[2018-03-10 15:36] VITALS: BP 138/89
== END 2018-03-10 18:31 | DRG 64 ==
LOC: ED 08:01 → EDIP 13:27 → 4EST 15:28
PROVIDERS: ADMIT Hospitalist; ATTEND Hospitalist
PROC: 0T9B70Z Drainage of Bladder with Drainage Device, Via Natural or Artificial Opening (ICD-10-PCS; principal; 2018-03-06)
PROC: 0HQ1XZZ Repair Face Skin, External Approach (ICD-10-PCS; 2018-03-06)
DX: I63.9 Cerebral infarction, unspecified (principal); E43 Unspecified severe protein-calorie malnutrition; B96.20 Unspecified Escherichia coli [E. coli] as the cause of diseases classified elsewhere; E03.9 Hypothyroidism, unspecified; E11.51 Type 2 diabetes mellitus with diabetic peripheral angiopathy without gangrene; F17.200 Nicotine dependence, unspecified, uncomplicated; E87.6 Hypokalemia; F25.9 Schizoaffective disorder, unspecified; I11.0 Hypertensive heart disease with heart failure; I50.9 Heart failure, unspecified; I67.1 Cerebral aneurysm, nonruptured; I71.2 Thoracic aortic aneurysm, without rupture; J43.9 Emphysema, unspecified; K70.9 Alcoholic liver disease, unspecified; M19.012 Primary osteoarthritis, left shoulder; N30.90 Cystitis, unspecified without hematuria; N32.81 Overactive bladder; Z16.12 Extended spectrum beta lactamase (ESBL) resistance; S01.111A Laceration without foreign body of right eyelid and periocular area, initial encounter; S01.81XA Laceration without foreign body of other part of head, initial encounter; W18.30XA Fall on same level, unspecified, initial encounter; Y93.89 Activity, other specified; Z79.82 Long term (current) use of aspirin; Z91.81 History of falling; Z99.81 Dependence on supplemental oxygen; Y92.89 Other specified places as the place of occurrence of the external cause; Z23 Encounter for immunization; Z68.24 Body mass index [BMI] 24.0-24.9, adult
CPT/HCPCS: 12052; 36415; 70450; 70551; 71045; 72125; 80048; 80053; 80061; 81001; 82040; 83036; 83735; 84100; 84439; 84443; 85025; 85610; 85730; 87040; 87077; 87086; 87186; 90656; 93005; 93306; 93880; 94640; 96365; 99285; G0378; J0696; J2185; J2405; J7644; 92523-GN; J3490

== ENCOUNTER 2018-08-01 17:45 | Emergency (ER) | payer MEDICARE, MEDICAID ==
[~2018-08-01] VITALS: Ht 162.6 cm; Wt 63.0 kg
[~2018-08-01 17:45] MED LIST changes: +AMLO-150 PO; -AMLO10TA6 PO; +AMLO10TA8 PO; -AMLO5TAB7 PO; +ASPI-515 PO; -ASPI-621 PO; +ASPI81TA45 PO; +CALC-487 PO; +IBUP-1222 PO; +LOSA100T14 PO; +MERO1VIA15 IV; +STAR1PAC2 PO
[2018-08-01] MEDS ORDERED: DIPHTHERIA-TETANUS ADULT 0.5ML IM-VACC ONE (18:30)
[2018-08-01] MEDS ORDERED: LIDOCAINE 1%-EPI 1:100K, 20ML INFIL ONE (18:30)
[2018-08-01] MEDS ORDERED: LIDOCAINE 1%-EPI 1:100K, 20ML ONE (18:36)
[2018-08-01] MEDS ORDERED: DIPH,PERTUSS(ACELL),TET VAC/PF 0.5 ML IM-VACC ONE (18:37)
--- NOTE | 2018-08-01 18:44 | NUR ---
PA STUDENT AT BEDSIDE PREPARING TO REPAIR WOUND. TECH PREPARING TO IRRIGATE WOUND
[2018-08-01] MEDS ORDERED: ACETAMINOPHEN 500 MG TABLET PO ONE (19:00)
[2018-08-01] MEDS ORDERED: ACETAMINOPHEN 500 MG TABLET ONE (19:02)
--- NOTE | 2018-08-01 19:08 | NUR ---
MEDICATED FOR [facility]. AWAITING CT
--- NOTE | 2018-08-01 20:09 | NUR ---
TO CT VIA [facility]
--- NOTE | 2018-08-01 20:36 | NUR ---
SLEEPING, AWAITING DISPO.
--- NOTE | 2018-08-01 21:17 | NUR ---
REPORT TO RODRIGO
[2018-08-01 22:17] VITALS: BP 145/74
--- NOTE | 2018-08-01 22:18 | NUR ---
D/C INSTRUCTIONS RV'WD WITH PT, SHE VERBALIZES UNDERSTADING.
--- NOTE | 2018-08-01 22:18 | NUR ---
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 ASSISTED PT TO LOBBY VIA WC.
== END 2018-08-01 22:28 | disposition home or self-care (01) ==
LOC: ED 20:15
DX: S01.01XA Laceration without foreign body of scalp, initial encounter (principal); W19.XXXA Unspecified fall, initial encounter; Y93.89 Activity, other specified; Y92.098 Other place in other non-institutional residence as the place of occurrence of the external cause; Y99.8 Other external cause status
CPT/HCPCS: 12001; 70450; 90471; 90714; 99284